=== PATIENT | female | born 1930 | race Caucasian/White ===

== ENCOUNTER 2016-04-18 11:42 | Outpatient (CLI) | payer MEDICARE, OTHER ==
[2016-04-18 12:55] LABS: Blood, Urine Trace (Negative); Glucose, Urine (Dipstick) Negative (Negative); Ketone, Urine 15 mg/dL (Negative); Nitrite Negative (Negative); Protein, Urine (Dipstick) 30 mg/dL (Neg-Trace); Urobilinogen 0.2 mg/dL (0.2-1.0)
[2016-04-18 13:00] LABS: ALT (SGPT) 27 U/L (0-55); AST (SGOT) 36 U/L (5-34); Alkaline Phosphatase 57 U/L (40-150); Anion Gap 13 mmol/L (10-20); BUN (Urea Nitrogen) 25 mg/dL (9.8-20.1); Bilirubin, Total 0.9 mg/dL (0.2-1.2); Calc. Creatinine Clearance 0 mL/min (70-130); Calcium 9.4 mg/dL (7.8-10.44); Carbon Dioxide 23 mmol/L (23-31); Chloride 109 mmol/L (98-107); Estimated GFR-MDRD 37; Globulin 3.6 g/dL (2.4-3.5); Protein, Total 7.8 g/dL (5.8-8.1)
[2016-04-18 14:07] LABS: Bilirubin Negative (Negative)
[2016-04-18 14:08] LABS: Bacteria/HPF Rare-Few HPF (None Seen); Hyaline Casts/LPF 0-3 HYALINE CAST LPF (0-3 Hyaline); RBC/HPF 0-3 HPF (0-3)
[2016-04-18 15:02] LABS: Hematocrit 44.8 % (36.0-47.0); Macrocytosis SLIGHT = 6-15 cells (100X) (0-5/hpf); Mean Platelet Volume 7.7 fL (7.4-10.4); Neutrophil 54 % (42-75); Red Blood Cell (RBC) Count 3.94 mill/uL (4.20-5.40); White Blood Cell (WBC) Count 6.9 thou/uL (4.8-10.8)
== END 2016-04-18 11:43 | disposition home or self-care (01) ==
LOC: NAVSJIPCSP 11:42
PROVIDERS: ATTEND Internal Medicine
DX: N39.0 Urinary tract infection, site not specified (principal); Z79.899 Other long term (current) drug therapy
CPT/HCPCS: 36415; 80053; 81003; 81015; 85025; 87086

== ENCOUNTER 2016-04-18 13:17 | Outpatient (CLI) | payer MEDICARE, OTHER ==
[~2016-04-18 13:17] MED LIST: Iodixanol 320 MG/ML (100 ML BOT) ONE
--- NOTE | 2016-04-18 16:24 | CT ---
CT OF THE THORAX WITH IV CONTRAST 04/18/16 INDICATION: Right lung pulmonary mass. FINDINGS: There is a fluid signal density elliptical appearing mass lesion situated in the region of the right minor fissure suspicious for pleural based pseudotumor likely related to trapped pleural fluid with in the minor fissure. There are small bilateral pleural effusions. There is hazy ground glass perihi lar opacities which may be related to edema or subsegmental atelectasis. There is a small pericardia l effusion. There are prominent mitral annular calcifications. There are prominent calcifications of the coronary arteries. There are prominent calcifications of the aortic arch. 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 There is advanced spondylosis of the thoracic spine. There are chronic appearing wedge deformities involving T12 and T6. No acute fracture is evident. There are mu ltiple small hypodensities involving both kidneys that are difficult to characterize due to their si ze. There is a slightly complex appearing cystic abnormality involving the left mid kidney measuring 1.7 cm on image 60 of series 2 with an area of central calcification. The left kidney is atrophic. There is a small hiatal hernia. The visualized adrenal glands are unremarkable. Spleen is normal dave earing. IMPRESSION: 1. Elliptical type fluid density mass centered within the right minor fissure suspicious for en trapped pleural fluid within the minor fissure. Followup examination in 6 to 8 weeks to document res olution is recommended. 2. Hazy opacities within the perihilar regions bilaterally may reflect mild alveolar edema. Aty pical infectious process or subsegmental atelectasis could cause a similar appearance. 3. Mildly complex cystic lesion involving the anterior aspect of the left mid kidney. Further e valuation with CT of the abdomen utilizing renal mass protocol may be helpful for additional charact erization. There is an associated central nodular calcification related to this lesion. 4. Atrophy of the left kidney. Renal hypodensities bilaterally, too small to characterize. 5. Chronic appearing compression abnormality of T12 and T6. POS: [facility]
== END 2016-04-18 13:18 | disposition home or self-care (01) ==
LOC: NAV CT 13:17
PROVIDERS: ATTEND Internal Medicine
DX: I48.2 Chronic atrial fibrillation (principal); D47.3 Essential (hemorrhagic) thrombocythemia
CPT/HCPCS: 71260; Q9967

== ENCOUNTER 2018-09-03 08:56 | Emergency (ER) | payer MEDICARE, OTHER ==
[2018-09-03] MEDS ORDERED: Lidocaine 1% w/Epinephrine 1:100K 30 ML VIAL ONE (09:15)
[2018-09-03] MEDS ORDERED: Bacitracin Zinc 1 Packet ONE (09:59)
--- NOTE | 2018-09-03 10:11 | CT ---
CT BRAIN WITHOUT CONTRAST: HISTORY:Injury, headache COMPARISON:None FINDINGS: There are foci of decreased attenuation in the periventricular white matter, consistent with chronic small vessel ischemic disease. No evidence of acute infarct, hemorrhage, midline shift or abnormal extra-axial fluid collections is seen. The ventricular size is appropriate and the basilar cisterns are patent. The bony calvarium is intact. The visualized paranasal sinuses and mastoid air cells are well aerated. IMPRESSION: No CT evidence of acute intracranial process.
--- NOTE | 2018-09-03 10:26 | CT ---
CT facial bones, noncontrast CLINICAL HISTORY: Pain COMPARISON: None FINDINGS: Facial bones: No fracture. Facial soft tissues: No acute abnormality. Orbital contents: Unremarkable Paranasal sinuses: No acute fluid level Incidental note of focal 8 mm calcific density at the inner table of the right temporal bone, which c ould relate to an osteoma or possibly a densely calcified meningioma. IMPRESSION: No acute facial fracture
--- NOTE | 2018-09-03 10:35 | CT ---
CT Cervical Spine WO Con Indication: Pain/Injury COMPARISON: None FINDINGS: Acute fracture/subluxation: None Spinal alignment: Trace spondylolisthesis, C7-T1 Vertebral body heights: Maintained. Cervical spine degenerative change: Mild multilevel degenerative change. Incidental note of thyroid gland heterogeneity with focal hypodensity of the left thyroid lobe. This may be further assessed with follow-up thyroid ultrasound, as necessary. IMPRESSION: No acute cervical spine fracture.
[2018-09-03] MEDS ORDERED: Acetaminophen 500 MG TAB ONE (11:00)
== END 2018-09-03 11:20 | disposition home or self-care (01) ==
LOC: NAV ERS 08:56
DX: S01.511A Laceration without foreign body of lip, initial encounter (principal); S50.311A Abrasion of right elbow, initial encounter; I12.9 Hypertensive chronic kidney disease with stage 1 through stage 4 chronic kidney disease, or unspecified chronic kidney disease; N18.3 Chronic kidney disease, stage 3 (moderate); F41.9 Anxiety disorder, unspecified; I48.91 Unspecified atrial fibrillation; E78.5 Hyperlipidemia, unspecified; I10 Essential (primary) hypertension; M06.9 Rheumatoid arthritis, unspecified; Z79.899 Other long term (current) drug therapy; Z79.82 Long term (current) use of aspirin; W01.0XXA Fall on same level from slipping, tripping and stumbling without subsequent striking against object, initial encounter
CPT/HCPCS: 12011; 70450; 70486; 72125; J2001

== ENCOUNTER 2020-06-03 12:23 | Outpatient (CLI) | payer MEDICARE, OTHER ==
[2020-06-03 13:58] LABS: Bilirubin Negative (Negative); Blood, Urine Negative (Negative); Glucose, Urine (Dipstick) Negative (Negative); Ketone, Urine Negative (Negative); Leukocyte Trace (Negative); Nitrite Negative (Negative); Protein, Urine (Dipstick) Negative (Neg-Trace); Urobilinogen 0.2 mg/dL (Less than 2); pH, Urine 5.5 (5.0-9.0)
[2020-06-03 14:06] LABS: #Basophils 0.2 thou/uL (0.0-0.2); #Eosinphils 0.3 thou/uL (0.0-0.7); #Lymphocytes 2.6 thou/uL (1.20-3.40); #Neutrophils 4.6 thou/uL (1.40-6.50); %Eosinophils 3.8 % (0.0-10.0); %Monocytes 11.9 % (0.0-10.0); %Neutrophils 52.4 % (42.0-75.0); Clarity SL HAZY (Clear); Hemoglobin 16.1 g/dL (12.0-16.0); Mean Corpuscular HGB CONC 32.5 g/dL (32.0-36.0); Mean Corpuscular Hemoglobin 35.6 pg (27.0-31.0); Mean Platelet Volume 7.6 fL (7.4-10.4); Platelet Count 462 thou/uL (130-400); RBC Distribution Width 14.1 % (11.5-14.5); Red Blood Cell (RBC) Count 4.52 mill/uL (4.20-5.40); White Blood Cell (WBC) Count 8.8 thou/uL (4.8-10.8)
[2020-06-03 14:07] LABS: Anisocytosis SLIGHT = 6-15 cells (100X) (0-5/hpf); Bacteria/HPF Rare-Few HPF (None Seen); Eosinophils 1 % (0-10); Lymphocytes 29 % (21-51); MDiff Complete? YES; Macrocytosis SLIGHT = 6-15 cells (100X) (0-5/hpf); Monocytes 10 % (0-10); Neutrophil 60 % (42-75); Platelet Morphology Comment Appears Increased; RBC/HPF 0-3 HPF (0-3); WBC/HPF 0-3 HPF (0-3)
== END 2020-06-03 12:24 | disposition home or self-care (01) ==
LOC: NAV LABSP 12:23
PROVIDERS: ATTEND Internal Medicine
DX: S22.42XA Multiple fractures of ribs, left side, initial encounter for closed fracture (principal); I95.1 Orthostatic hypotension
CPT/HCPCS: 81003; 81015; 84443; 85025